=== PATIENT | female | born 1955 ===

== ENCOUNTER → 2016-09-21 | Outpatient (CLI) | payer OTHER ==
[2016-09-21 12:35] LABS: BASO # 0.1 x10^3/uL (0.0-0.2); BASO % 1 % (0-3); EOS % 2 % (0-3); HEMATOCRIT 42.7 % (36.0-47.0); HEMOGLOBIN 14.7 g/dL (12.0-15.5); LYMPH # 4.2 x10^3/uL (1.0-4.8); LYMPH % 39 % (24-48); MEAN CORPUSCULAR HEMOGLOBIN 30 pg (25-35); MEAN CORPUSCULAR HGB CONC 34 g/dL (31-37); MEAN CORPUSCULAR VOLUME 86 fL (79-100); MONO % 6 % (0-9); NEUT % 52 % (31-73); PLATELET COUNT 181 x10^3/uL (140-400); RED BLOOD COUNT 4.95 x10^6/uL (3.50-5.40); RED CELL DISTRIBUTION WIDTH 13.3 % (11.5-14.5); WHITE BLOOD COUNT 10.9 x10^3/uL (4.0-11.0)
[2016-09-21 12:54] LABS: ALBUMIN/GLOBULIN RATIO 1.2 (1.0-1.7); CALCIUM 9.2 mg/dL (8.5-10.1); GFR 56.6; TOTAL BILIRUBIN 0.3 mg/dL (0.2-1.0); TOTAL PROTEIN 7.4 g/dL (6.4-8.2)
[2016-09-22 23:10] LABS: VITAMIN D25(OH)TOTAL 16.2 ng/mL (30.0-100.0)
== END | disposition home or self-care (01) ==
LOC: LAB 12:11
PROVIDERS: ATTEND Psychiatry & Neurology Neurology
DX: R41.3 Other amnesia (principal)
CPT/HCPCS: 36415; 80053; 82306; 82607; 84443; 85027

== ENCOUNTER → 2016-10-13 | Outpatient (CLI) | payer OTHER ==
--- NOTE | 2016-10-13 13:22 | EEG ---
DATE OF SERVICE: 10/13/2016 ELECTROENCEPHALOGRAM NUMBER: [id number] OBJECTIVE: This is a 60-year-old female patient with history of memory loss and confusional episodes. EEG was requested to evaluate cerebral activity. METHODS: Twenty electrodes were applied according to the international 10-20 electrode placement system. EKG monitoring, hyperventilation, intermittent photic stimulation, monopolar and bipolar montages were routinely utilized. The record was obtained on a digital system with video monitoring. FINDINGS: 1. Background: The patient was recorded in the awake, drowsy, and sleep states. The overall background amplitude is 10-20 microvolts. A posterior dominant rhythm of 6-8 Hz is observed. 2. Abnormalities: No specific epileptiform discharge or electrographic seizure is seen. No focal or diffuse slowing. 3. Activation: Hyperventilation was performed with good efforts and normal response. Intermittent photic stimulation was performed with photic driving. No specific epileptiform discharge or electrographic seizure induced by hyperventilation or intermittent photic stimulation. IMPRESSION: This electroencephalogram falls into the category of a mildly abnormal study for the awake, drowsy, and sleep states. The posterior dominant rhythm of 6-8 Hz is mildly slow for age. No focal, lateralizing, specific epileptiform discharge or electrographic seizure is seen. JOHNATHAN AGUERO MD DR: EULALIO/sia JOB#: [id number] / [id number] FANY
== END | disposition home or self-care (01) ==
LOC: RT 08:51
PROVIDERS: ATTEND Psychiatry & Neurology Neurology
DX: R41.3 Other amnesia (principal)
CPT/HCPCS: 95816